=== PATIENT | female | born 1940 | race Two or more races ===

== ENCOUNTER 2019-08-08 07:00 | Day surgery (SDC) | payer OTHER | END 2019-08-08 12:30 | disposition home or self-care (01) | LOC: AMB-ENDOS 07:00 | DX: D12.5 Benign neoplasm of sigmoid colon (principal); K57.30 Diverticulosis of large intestine without perforation or abscess without bleeding; K64.1 Second degree hemorrhoids ==

== ENCOUNTER → 2022-04-06 08:00 | Outpatient (CLI) | payer OTHER ==
[~2022-04-06] VITALS: Ht 157.5 cm; Wt 74.4 kg
[~2022-04-06 08:00] MED LIST: AMLODIPINE BESYL5 MG PO; CARVEDILOL25 M1 PO; CARVEDILOL3.125 MG; CATAPRES0.3 MG PO; CLONAZEPAM2 M1 PO; COZAAR100 MG PO; HYDRALAZINE HC100 MG PO; NORVASC10 MG PO; SIMVASTATIN20 MG PO; VASOTEC20 M1 PO; ZAROXOLYN2.5 MG PO
== END | disposition home or self-care (01) ==
LOC: LAB 08:00 → SURG 04-12 08:45 → EDSTATUS 04-12 08:45 → SURG 04-12 16:00
PROVIDERS: ATTEND Colon & Rectal Surgery
DX: I10 Essential (primary) hypertension (principal); D12.5 Benign neoplasm of sigmoid colon; Z86.010 Personal history of colon polyps; K92.1 Melena; Z03.818 Encounter for observation for suspected exposure to other biological agents ruled out; Z20.822 Contact with and (suspected) exposure to COVID-19